=== PATIENT | female | born 1985 | race Caucasian/White ===

== ENCOUNTER 2023-05-02 05:47 | Emergency (ER) | payer MEDICAID, SELFPAY ==
[2023-05-02 05:49] VITALS: BP 142/87; PULSE 87; RESP 18; TEMP 36.4; O2SAT 99; BMI 28.0
--- NOTE | 2023-05-02 05:55 | RAD_ITS ---
EXAM: XR LEFT FOOT COMPLETE, 3 OR MORE VIEWS CLINICAL INDICATION: injury -- attn: toes 4-5 TECHNIQUE: Frontal, lateral and oblique views of the left foot. COMPARISON: No relevant prior studies available. FINDINGS: BONES/JOINTS: Linear lucency at the base of the distal phalanx of the fifth toe. No subluxation. Normal alignment. Preservation of the joint space. SOFT TISSUES: Soft tissue swelling of the fourth and fifth toes. No radiopaque foreign body. RAD/Foot min 3 Views IMPRESSION: Linear lucency at the base of the distal phalanx of the fifth toe. This may indicate a nondisplaced intra-articular fracture. Electronically Signed: Duane Pastrana MD at 6:35 EST ,
--- NOTE | 2023-05-02 05:56 | ED.VIS.LOWEX ---
HPI History of Present Illness Chief Complaint: Lower Extremity Injury Informant: patient Narrative Narrative: Patient got up this morning prior to work and was walking out of her basement better him to get some water to drink and accidentally injured her left fifth toe against a concrete lip as she was trying to walk over it. Able to walk but with pain. No other injuries. 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 PFSH PFSH Home Medications citalopram 20 mg tablet 30 mg PO DAILY 05/02/23 [History Last Taken Unknown] hydrocodone-acetaminophen 5-325mg 5mg-325mg 1 tab PO Q6H PRN PRN Pain 2 days #8 TABLETS 05/02/23 [Rx Last Taken Unknown] Allergy/AdvReac Type Severity Reaction Status Date / Time No Known Allergies Allergy Verified 05/02/23 05:48 Surgical History H/O: hysterectomy Social History Smoking Status: Former smoker ROS ROS ED Constitutional Constitutional ED: Denies chills or fever(s) Musculoskeletal Musculoskeletal: Reports extremity pain; Denies neck pain Integumentary Denies Abrasions, rash or wounds Neurologic Neurologic: Denies paresthesias or weakness EXAM Physical Exam Const Vital Signs: 05/02/23 05:49 Temperature 97.6 F L Temperature Source Temporal Pulse Rate 87 Respiratory Rate 18 Blood Pressure 142/87 H Blood Pressure Mean 105 Pulse Ox 99 Oxygen Delivery Method Room Air Positive well nourished and well developed General Appearance ED: well developed and NAD Neck full ROM and supple Back/Spine normal ROM and normal to inspection Extremity Extremity Narrative: Left foot: Swollen tender left fifth toe without deformity. Minimally tender at the fifth MTPJ, mildly tender fourth toe without signs of injury there. No tenderness at the base of the fifth metatarsal, and no other foot tenderness. Neuro oriented x3, no focal motor deficits and no sensory deficits noted Sensorium / Orientation: alert Psych thought process normal Mood & Affect: anxious Skin no wounds Rashes: no rashes MDM MDM MDM Narrative Medical decision making narrative: Three-view x-rays on my interpretation show what appears to be a longitudinal nondisplaced fracture of the distal phalanx of the left fifth toe. Otherwise, no other injuries. Patient was given a postop shoe, she wants only for pain and she is on citalopram, so instead of tramadol I will give her a few [place] to use for pain, with the doses of ibuprofen here and referral to podiatry as needed. Likely nonsurgical fracture, although it does appear to be intra-articular. Discharge Plan Triage Chief Complaint: Lower Extremity Injury ED Provider: Dax Crowder Dx/Rx/DC Orders Clinical Impression: Closed fracture of distal phalanx of lesser toe of left foot Instructions: ED Fracture, Toe, Closed Prescriptions: New hydrocodone-acetaminophen [hydrocodone-acetaminophen] 5-325 mg tablet 1 tab PO Q6H PRN PRN (Reason: Pain) 2 Days Qty: 8 0RF No Action citalopram 20 mg tablet 30 mg PO DAILY Patient Comments: TAKE 1 & 1/2 TABLETS BY MOUTH ONCE DAILY FOR A TOTAL OF 30 MG DAILY Stand Alone Forms: ED Work / School Excuse Primary Care Provider: Duane Reveles Referrals: Benjamin Morales DPM [Med Staff - Active Staff] - 1-2 Weeks Disposition Disposition: Home, Self Care
--- OUTSIDE RECORDS SUMMARY | 2023-05-02 06:38 | XMS RPT_ITS | CCD ---
Author Name Unknown Address [address] [place] [address] Organization [facility] Care Team Providers Care 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 Name Role Phone ShiDyane chang A Unavailable Unavailable Call, On Unavailable Unavailable Tizzano Wilver P Unavailable Unavailable No Doctor Assigned, Nodr Unavailable Unavail able Tithea Wilver P Unavailable Unavailable Tizzano, Wilver P Unavailable Unavailable No Doctor Assigned, Nodr Unavailable Unavail able Albina, Matteo A Unavailable Unavailable Albina, Matteo A Unavailable Unavailable No Doctor Assigned, Nodr Unavailable Unavail able Albina, Matteo A Unavailable Unavailable Albina, Matteo A Unavailable Unavailable No Doctor Assigned, Nodr Unavailable Unavail able Bosch, Vahe Unavailable Unavailable Bosch, Vahe Unavailable Unavailable No Doctor Assigned, Nodr Unavailable Unavail able Sokari, Telemate Unavailable Unavailable Sokari, Telemate Unavailable Unavailable No Doctor Assigned, Nodr Unavailable Unavail able Tithea Wilver P Unavailable Unavailable No Doctor Assigned, Nodr Unavailable Unavail able Ivanauskas, Saulius Unavailable Unavailable Ivanauskas, Saulius Unavailable Unavailable No Doctor Assigned, Nodr Unavailable Unavail able Arturo Burns Admitting UnavailArturo Peacock Attending UnavailArturo Peacock Admitting Unavailabl e Arturo Burns Attending Unavailabl e None, No PCP Unavailable Unavailable Unavailable Unavailable Yenny Reveles Unavailable Yenny Reveles PA-C Primary Care Provider YENNY REVELES Admitting Unavailable GLADYS MURRAY Attending Unavailable NEWYENNY SMITH Referring Unavailable NEWBILL, YENNY SÁNCHEZ Primary Care Unavailable VON MURRAYBERT JE Admitting Unavailable MALI MAURICIO Attending Unavailab le MURRAYVONBERT JE Referring Unavailable NEWBILL, YENNY SÁNCHEZ Primary Care Unavailable NEWBILL, YENNY SÁNCHEZ Primary Care Unavailable GLADYS MURRAY JE Attending Unavailable MURRAY, GUBERT JE Referring Unavailable NEWBILL, YENNY GONZALO Primary Care Unavailable MURRAYGLADYS JE Attending Unavailable MURRAY, GUBERT JE Referring Unavailable NEWBILL, YENNY PEREZEL Primary Care Unavailable MURRAYGLADYS JE Attending Unavailable MURRAY, GUBERT JE Referring Unavailable NEWBILMaikol, YENNY SÁNCHEZ Primary Care Unavailable OFELIA, Dr. ERICKSON LOMBARDO Attending Unavai lable Newbill, Mr. Yenny Sánchez Primary Care Unavail able Fried, Ms. Berylwilson Lawrence Attending Unavailabl e Fried, MsCarmen Lawrence Referring Unavailabl e Joselynl, Mr. Yenny Sánchez Primary Care Unavail able Newbill, Mr. Yenny Sánchez Primary Care Unavail able Newbill, Mr. Yenny Sánchez Attending Unavail able Newbill, Mr. Yenny Sánchez Referring Unavail able ERICKSON PENA Attending Unavailable Newbill, Mr. Yenny Sánchez Primary Care Unavail able ERICKSON PENA Attending Unavailable ERICKSON PENA Referring Unavailable Newbill, Mr. Yenny Sánchez Primary Care Unavail able ERICKSON PENA Attending Unavailable ERICKSON PENA Referring Unavailable Newbill, Mr. Yenny Sánchez Primary Care Unavail able Newbill, Mr. Yenny Sánchez Primary Care Unavail able ERICKSON PENA Attending Unavailable ERICKSON PENA Referring Unavailable Newbill MANUELCEbern Kaykay Primary Care Provider Newbill PA-C, Yenny M Unavailable Newbill PA-C, Yenny M Unavailable SHAWN SANTOS Attending Unavailable SHAWN SANTOS Referring Unavailable NEWBILL, YENNY M Primary Care Unavailable SHAWN SANTOS Referring Unavailable NEWBILL, YENNY M Primary Care Unavailable SHAWN SANTOS Referring Unavailable NEWBILL, YENNY M Primary Care Unavailable NEWBILL, YENNY M Attending Unavailable NEWBILL, YENNY M Primary Care Unavailable ERICKSON PENA Attending Unavailable YENNY REVELES Primary Care Unavailable ERICKSON PENA Attending Unavailable EYNNY REVELES Primary Care Unavailable Medications Current Medications Medication Drug Class(es) Dates Sig (Normalized) Sig (Original) [id number] 200 actuat albuterol 0.09 mg/actuat metered dose inhaler (4 sources) beta2-Adrenergi c Agonist Start: 03-10-2019 take 2 puff(s) by inhalation four times daily albuterol (ProAir HFA) 90 mcg/actuation inhaler Inhale 2 puffs 4 times a day. 0 03/10/2019 Active cholecalciferol 0.025 mg oral tablet (10 sources) Vitamin D Start: 05-25-2021 take 1 tablet by mouth once daily cholecalciferol 25 mcg (1,000 unit) tablet TAKE 1 TABLET BY MOUTH EVERY DAY 30 tablet 11 05/25/2021 Active Completed/Discontinued Medications Medication Drug Class(es) Dates Sig (Normalized) Sig (Original) fluconazole 150 mg oral tablet (7 sources) Azole Antifungal Start: 12-15-2021 End: 01-25-2022 take 1 tablet by mouth once Fluconazole 150 MG Oral Tablet TAKE 1 TABLET 1 TIME ONLY. Quantity: 1 Refills: 1 Ordered: 15-Dec-2021 Erickson Pena MD Start : 15-Dec-2021 End : 25-Jan-2022 Complete Problems Active Problems Problem Classification Problem Date Documented Da te Episodic/Chronic Anxiety disorders (20 sources) Mixed anxiety and depressive disorder; Translations: [Anxiety state, unspecified] Onset: 11-24-2022 11-24-2022 Chronic Cancer of uterus (15 sources) History of malignant neoplasm of uterine body; Translations: [Personal history of malignant neoplasm of other parts of uterus] Episodic Epilepsy; convulsions (18 sources) Neurological finding; Translations: [Other convulsions] Onset: 11-24-2022 Resolved: 01-25-2022 11-24-2022 Episodic Headache; including migraine (20 sources) Migraine with aura; Translations: [Migraine with aura, without mention of intractable migraine without mention of status migrainosus] Onset: 11-24-2022 11-24-2022 Chronic Immunizations and screening for infectious disease (20 sources) Patient encounter status; Translations: [Screening examination for venereal disease] Onset: 03-08-2023 Resolved: 04-25-2021 03-08-2023 Episodic Inflammatory diseases of female pelvic organs (20 sources) Bacterial vaginosis; Translations: [Vaginitis and vulvovaginitis, unspecified] Onset: 11-24-2022 Resolved: 01-25-2022 11-24-2022 Episodic Mood disorders (2 sources) Mood disorders; Translations: [Depression, unspecified] Onset: 11-24-2022 Other and unspecified benign neoplasm (2 sources) Fibroadenoma of breast; Translations: [Benign neoplasm of breast] Episodic Other female genital disorders (4 sources) Pruritus of vagina; Translations: [Pruritus of genital organs] Episodic Other screening for suspected conditions (not mental disorders or infectious disease) (11 sources) Encounter for screening for malignant neoplasm of vagina; Translations: [Ultrasonography of breast abnormal] Onset: 01-26-2022 Episodic Residual codes; unclassified (15 sources) History of past delivery; Translations: [Personal history of other genital system and obstetric disorders] Episodic Past or Other Problems Problem Classification Problem Date Documented Date Episodic/Chronic Genitourinary symptoms and ill-defined conditions (15 sources) Dysuria; Translations: [Dysuria] Onset: 11-24-2022 11-24-2022 Episodic Mycoses (15 sources) Candidiasis of vagina; Translations: [Candidiasis of vulva and vagina] Onset: 11-24-2022 Resolved: 01-25-2022 11-24-2022 Episodic Nonmalignant breast conditions (20 sources) Breast tenderness; Translations: [Mastodynia] Onset: 01-29-2022 Resolved: 04-25-2021 Episodic Other and unspecified benign neoplasm (4 sources) Fibroadenoma of left breast; Translations: [Benign neoplasm of left breast] Onset: 11-24-2022 11-24-2022 Episodic Other connective tissue disease (1 source) Pain in right foot; Translations: [PAIN IN RIGHT FOOT] Onset: 08-12-2016 Episodic Other female genital disorders (11 sources) History of gynecological disorder; Translations: [Personal history of other genital system and obstetric disorders] Resolved: 04-25-2021 Episodic Other infections; including parasitic (11 sources) H/O: infectious disease; Translations: [Personal history of other infectious and parasitic diseases] Resolved: 04-25-2021 Episodic Other non-traumatic joint disorders (1 source) Pain in right ankle and joints of right foot; Translations: [PAIN IN RIGHT ANKLE AND JOINTS OF RIGHT FOOT] Onset: 08-12-2016 Episodic Residual codes; unclassified (4 sources) H/O: urinary anomaly; Translations: [Personal history of unspecified urinary disorder] Resolved: 04-25-2021 Episodic Unclassified (2 sources) Onset: 01-31-2023 01-31-2023 Results Test Name Value Interpretation Reference Range Facil ity Vital Signs Date Time Vital Sign Value Performing Clinician Facility 03-08-2023 08:49-0500 Body height 142.2 cm Erickson Pena MD Work Phone: [facility] 03-08-2023 08:49-0500 Body mass index (BMI) [Ratio] 26.99 kg/m2 Erickson Pena MD Work Phone: [facility] 03-08-2023 08:49-0500 Body weight 54.61 kg Erickson Pena MD Work Phone: [facility] 03-08-2023 08:49-0500 Diastolic blood pressure 68 mm[Hg] Erickson Pena MD Work Phone: [facility] 03-08-2023 08:49-0500 Systolic blood pressure 116 mm[Hg] Erickson Pena MD Work Phone: [facility] 01-31-2023 11:51-0500 Body height 142.2 cm Yenny Fernandezbill PA-C Work Phone: [facility] 01-31-2023 11:51-0500 Body mass index (BMI) [Ratio] 27.06 kg/m2 Yenny Newbill PA-C Work Phone: [facility] 01-31-2023 11:51-0500 Body temperature 97.7 [degF] Yenny Newbill PA-C Work Phone: [facility] 01-31-2023 11:51-0500 Body weight 54.75 kg Yenny Newbill PA-C Work Phone: [facility] 01-31-2023 11:51-0500 Diastolic blood pressure 87 mm[Hg] Yenny Newbill PA-C Work Phone: [facility] 01-31-2023 11:51-0500 Heart rate 65 /min Yenny Newbill PA-C Work Phone: [facility] 01-31-2023 11:51-0500 Systolic blood pressure 131 mm[Hg] Yenny Newbill PA-C Work Phone: [facility] 11-30-2022 12:27-0400 Body height 142.2 cm Shawn Tom [employer] COUNTER ASSOCIATE-[employer]RECKING MECHANIC Work Phone: [facility] 11-30-2022 12:27-0400 Body mass index (BMI) [Ratio] 26.9 kg/m2 Shawn Tom [employer] COUNTER ASSOCIATE-WRECKING MECHANIC Work Phone: [facility] 11-30-2022 12:27-0400 Body weight 54.43 kg Shawn Tom [employer] COUNTER ASSOCIATE-WRECKING MECHANIC Work Phone: [facility] 11-30-2022 12:27-0400 Diastolic blood pressure 50 mm[Hg] Shawn Tom [employer] COUNTER ASSOCIATE-WRECKING MECHANIC Work Phone: [facility] 11-30-2022 12:27-0400 Heart rate 76 /min Shawn Tom AUT[employer] COUNTER ASSOCIATE-WRECKING MECHANIC Work Phone: [facility] 11-30-2022 12:27-0400 Respiratory rate 16 /min Shawn Tom [employer] COUNTER ASSOCIATE-WRECKING MECHANIC Work Phone: [facility] 11-30-2022 12:27-0400 Systolic blood pressure 100 mm[Hg] Shawn Tom [employer] COUNTER ASSOCIATE-WRECKING MECHANIC Work Phone: [facility] 11-30-2022 10:57-0400 Body height 142.2 cm Stj [address] [facility] 11-30-2022 10:57-0400 Body mass index (BMI) [Ratio] 27.13 kg/m2 [facility] [address] [facility] 11-30-2022 10:57-0400 Body weight 54.88 kg [facility] [address] [facility] 11-07-2022 10:34-0400 Body height 142.24 cm Yenny Kaykay Newbill Work Phone: [facility] [address] Work Phone: 11-07-2022 10:34-0400 Body mass index (BMI) [Ratio] 27.35 kg/m2 Yenny M Newbill Work Phone: [facility] [address] Work Phone: 11-07-2022 10:34-0400 Body surface area Derived from formula 1.44 m2 Yenny M Newbill Work Phone: [facility] [address] Work Phone: 11-07-2022 10:34-0400 Body weight 55.34 kg Yenny M Newbill Work Phone: [facility] [address] Work Phone: 11-07-2022 10:34-0400 Diastolic blood pressure 74 mm[Hg] Yenny M Newbill Work Phone: [facility] [address] Work Phone: 11-07-2022 10:34-0400 Systolic blood pressure 122 mm[Hg] Yenny M Newbill Work Phone: [facility] [address] Work Phone: 02-02-2022 15:42-0500 Body height 142.24 cm Yenny M Newbill Work Phone: [facility] [address] Work Phone: 02-02-2022 15:42-0500 Body mass index (BMI) [Ratio] 27.13 kg/m2 Yenny M Newbill Work Phone: [facility] [address] Work Phone: 02-02-2022 15:42-0500 Body surface area Derived from formula 1.43 m2 Yenny M Newbill Work Phone: [place] [address] [address] Work Phone: 02-02-2022 15:42-0500 Body weight 54.9 kg Yenny M Newbill Work Phone: [place] [address] [address] Work Phone: 02-02-2022 15:42-0500 Diastolic blood pressure 72 mm[Hg] Yenny M Newbill Work Phone: [place] [address] [address] Work Phone: 02-02-2022 15:42-0500 Systolic blood pressure 118 mm[Hg] Yenny M Newbill Work Phone: [place] [address] [address] Work Phone: 01-26-2022 13:13-0500 Body height 142.24 cm Yenny M Newbill Work Phone: [place] [address] [address] Work Phone: 01-26-2022 13:13-0500 Body mass index (BMI) [Ratio] 26.25 kg/m2 Yenny M Newbill Work Phone: [place] [address] Work Phone: 01-26-2022 13:13-0500 Body surface area Derived from formula 1.41 m2 Yenny M Newbill Work Phone: [place] [address] [address] Work Phone: 01-26-2022 13:13-0500 Body weight 53.1 kg Yenny M Newbill Work Phone: [place] [address] [address] Work Phone: 01-26-2022 13:13-0500 Diastolic blood pressure 66 mm[Hg] Yenny M Newbill Work Phone: [address] Work Phone: 01-26-2022 13:13-0500 Systolic blood pressure 112 mm[Hg] Yenny Reveles Work Phone: [address] Work Phone: 01-25-2022 16:04-0500 Body height 142.24 cm Yenny Reveles Work Phone: [facility] Work Phone: 01-25-2022 16:04-0500 Body mass index (BMI) [Ratio] 26.46 kg/m2 Yenny Reveles Work Phone: [facility] Work Phone: 01-25-2022 16:04-0500 Body surface area Derived from formula 1.42 m2 Yenny Reveles Work Phone: [facility] Work Phone: 01-25-2022 16:04-0500 Body temperature 97.8 [degF] Yenny Reveles Work Phone: [facility] Work Phone: 01-25-2022 16:04-0500 Body weight 53.52 kg Yenny Reveles Work Phone: [facility] Work Phone: 01-25-2022 16:04-0500 Diastolic blood pressure 68 mm[Hg] Yenny Reveles Work Phone: [facility] Work Phone: 01-25-2022 16:04-0500 Heart rate 88 /min Yenny Reveles Work Phone: [facility] Work Phone: 01-25-2022 16:04-0500 SaO2% (BldA) [Mass fraction] 98 % Yenny M Newleahl Work Phone: [facility] Work Phone: 01-25-2022 16:04-0500 Systolic blood pressure 110 mm[Hg] Yenny Kaykay Newbill Work Phone: [facility] Work Phone: 11-30-2021 13:50-0400 Body height 142.24 cm Yenny Kaykay Newbill Work Phone: [place] [address] [address] Work Phone: 11-30-2021 13:50-0400 Body mass index (BMI) [Ratio] 26.25 kg/m2 Yenny Kakyay Newbill Work Phone: [address] Work Phone: 11-30-2021 13:50-0400 Body surface area Derived from formula 1.41 m2 Yenny Alvesl Work Phone: [place] [address] [address] Work Phone: 11-30-2021 13:50-0400 Body weight 53.1 kg Yenny Reveles Work Phone: [address] Work Phone: 11-30-2021 13:50-0400 Diastolic blood pressure 74 mm[Hg] Yenny Kaykay Newbill Work Phone: [place] [address] [address] Work Phone: 11-30-2021 13:50-0400 Systolic blood pressure 108 mm[Hg] Yenny Kaykay Newbill Work Phone: [place] [address] [address] Work Phone: 04-25-2021 11:33-0500 Body height 142.24 cm [facility] Work Phone: [facility] Work Phone: 04-25-2021 11:33-0500 Body mass index (BMI) [Ratio] 26.63 kg/m2 Yenny Alvesl Work Phone: [facility] Work Phone: 04-25-2021 11:33-0500 Body surface area Derived from formula 1.42 m2 Yenny Alvesl Work Phone: [facility] Work Phone: 04-25-2021 11:33-0500 Body temperature 98.2 [degF] Yenny Alvesl Work Phone: [facility] Work Phone: 04-25-2021 11:33-0500 Body weight 53.89 kg Yenny Alvesl Work Phone: [facility] Work Phone: 04-25-2021 11:33-0500 Diastolic blood pressure 81 mm[Hg] Yenny Reveles Work Phone: [facility] Work Phone: 04-25-2021 11:33-0500 Heart rate 86 /min Yenny Reveles Work Phone: [facility] Work Phone: 04-25-2021 11:33-0500 SaO2% (BldA) [Mass fraction] 99 % Yenny Reveles Work Phone: [facility] Work Phone: 04-25-2021 11:33-0500 Systolic blood pressure 124 mm[Hg] Yenny Kaykay Alvesl Work Phone: [facility] Work Phone: 01-02-2021 11:02-0500 Body height 142.24 cm Yenny Alvesl Work Phone: [facility] Work Phone: 01-02-2021 11:02-0500 Body mass index (BMI) [Ratio] 24.89 kg/m2 Yenny Reveles Work Phone: [facility] Work Phone: 01-02-2021 11:02-0500 Body surface area Derived from formula 1.38 m2 Yenny Alves Work Phone: [facility] Work Phone: 01-02-2021 11:02-0500 Body temperature 98.4 [degF] Yenny Reveles Work Phone: [facility] Work Phone: 01-02-2021 11:02-0500 Body weight 50.35 kg Yenny Reveles Work Phone: [facility] Work Phone: 01-02-2021 11:02-0500 Diastolic blood pressure 80 mm[Hg] Yenny Reveles Work Phone: [facility] Work Phone: 01-02-2021 11:02-0500 Heart rate 82 /min Yenny Reveles Work Phone: [facility] Work Phone: 01-02-2021 11:02-0500 SaO2% (BldA) [Mass fraction] 98 % Yenny Reveles Work Phone: [facility] Work Phone: 01-02-2021 11:02-0500 Systolic blood pressure 119 mm[Hg] Yenny Alvesl Work Phone: [facility] Work Phone: 12-23-2020 10:52-0400 Body height 142.24 cm No [facility]CP [facility] [address] Work Phone: 12-23-2020 10:52-0400 Body mass index (BMI) [Ratio] 24.86 kg/m2 No [facility] [address] [place] [address] Work Phone: 12-23-2020 10:52-0400 Body surface area Derived from formula 1.38 m2 No PCP None [address] Work Phone: 12-23-2020 10:52-0400 Body temperature 98 [degF] No [facility]CP [facility] [address] [place], [place] [address] Work Phone: 12-23-2020 10:52-0400 Body weight 50.3 kg No PCP None [facility] [address] [place] [address] Work Phone: 12-23-2020 10:52-0400 Diastolic blood pressure 70 mm[Hg] No PCP None [address] Work Phone: 12-23-2020 10:52-0400 Systolic blood pressure 114 mm[Hg] No PCP None [address] Work Phone: Encounters Encounter Date Encounter Type Care Provider Facility Start: 03-08-2023 End: 03-08-2023 ambulatory [facility] Start: 03-08-2023 End: 03-08-2023 Office outpatient visit 15 minutes Erickson Pena MD Work Phone: [facility] Procedures Date Procedure Procedure Detail Performing Clinician Start: 03-08-2023 Smr prim src wet santosh nt nfct agt Erickson Pena MD Work Phone: Start: 11-30-2022 BI US BREAST LIMITED LEFT SHAWN SANTOS Start: 11-30-2022 BI MAMMO BILATERAL DIAGNOSTIC TOMOSYNTHESIS SHAWN SANTOS Start: 11-30-2022 Diagnostic mammograp hy computer-aided detcj bi Shawn Santos APRN-WRECKING MECHANIC Work Phone: Start: 01-26-2022 Microscopic observat ion [Identifier] in Cervix by Cyto stain Shawn Santos APRN-WRECKING MECHANIC Work Phone: Start: 05-16-2021 End: 05-16-2021 Ecg routine ecg w/least 12 lds w/i&r Gladys Murray MD Work Phone: Dilation and curettage No PC P None Hysterectomy No PCP None Plan of Treatment Date Care Activity Detail Author Start: 06-12-2035 Zoster Vaccines (1 o f 2) Zoster Vaccines (1 of 2) [facility] Start: 01-26-2025 Screening for malignant neoplasm of cervix [facility] Start: 02-08-2024 Yearly Adult Physical Yearly Adult P hysical [facility] Start: 02-03-2024 End: 02-03-2024 Patient encounter procedure 02/03/2024 1:10 PM EST Office Visit [facility] [address] [place] [id number] Yenny Reveles PA-C [address] [facility] [place] [address] [facility] Start: 12-06-2023 End: 12-06-2023 Patient encounter procedure [facility] Start: 03-08-2023 End: 03-15-2023 Bacteria identified in Genital specimen by Aerobe culture Genital Culture Microbiology Routine Screen for STD (sexually transmitted disease) Expected: 03/08/2023 (Approximate), Expires: 03/15/[address] [facility] Work Phone: Payers Date Payer Category Payer Medicaid [employer] [id number] 2017-Present [phone] [address] [place] [address] [id number] 2017 Unknown [id number] 2017 Unknown [id number] 2017 Unknown 1985 Unknown [id number] 2.16.840.1.096722.3.579.2. 1985 Unknown [id number] 2.16.840.1.061717.3.579.2 1985 Unknown [id number] 2.16.840.1.058178.3.579.2 1985 Unknown [id number] 2.16.840.1.384018.3.579.2 1985 Unknown [id number] 2.16.840.1.805159.3.579.2 1985 Unknown [id number] 2..840.1.516138.3.579.2 1985 Unknown [id number] 2.16.840.1.033783.3.579.2 1985 Unknown [id number] 2.840.1.427565.3.579.2 1985 Unknown [id number] 2.16840.1.195491.3.579.2 1985 Unknown [id number] 2.840.1.628362.3.579.2 1985 Unknown [id number] 2.16.840.1.450863.3.579.2 1985 Unknown [id number] 2.16840.1.130616.3.579.2 1985 Unknown [id number] 2.16840.1.158624.3.579.2 1985 Unknown [id number] 2.16840.1.715874.3.579.2 1985 Unknown [id number] 2.16.840.1.215289.3.579.2.1068 1985 Unknown [id number] 2.16840.1.792026.3.579.2.356 1985 Unknown [id number] 2.16.840.1.639308.3.579.2.356 1985 Unknown [id number] 2.16.840.1.244665.3.579.2.356 1985 Unknown [id number] 2.16.840.1.634954.3.579.2.356 1985 Unknown [id number] 2.16.840.1.008196.3.579.2.356 1985 Unknown [id number] 2.16.840.1.840672.3.579.2.356 1985 Unknown [id number] 2.16.840.1.584429.3.579.2.1245 1985 Unknown [id number] 2.16.840.1.479647.3.579.2.1243 1985 Unknown [id number] 2.16.840.1.491057.3.579.2.1243 1985 Unknown [id number] 2.16.840.1.451463.3.579.2.1244 1985 Unknown [id number] 2.16.840.1.942914.3.579.2.1244 1985 Unknown [id number] 2.16.840.1.478951.3.579.2.1244 Unknown [id number] Social History Date Type Detail Facility Start: 01-31-2023 End: 02-06-2023 Occasional alcohol use Occasional alcohol use [facility] Work Phone: Start: 05-01-2021 [facility] Start: 05-01-2021 End: 01-31-2023 Tobacco use and exposure Smokeless tobacco non-user [facility] Start: 05-01-2021 Alcohol intake Ex-drinker (finding) [facility] Start: 1985 Sex Assigned At Not on file [facility] Start: 04-21-2021 End: 03-08-2023 Exposure to SARS-CoV-2 (event) Not sure [facility] Start: 11-30-2022 Tobacco smoking stat [facility] Tobacco smoking consumption unknown [facility] Start: 01-31-2023 End: 02-06-2023 Gender identity Not on file [facility] Work Phone: Start: 01-31-2023 [facility] Start: 01-31-2023 End: 03-08-2023 Alcohol intake Current drinker of alcohol (finding) [facility] Work Phone: Clinical Notes 12-21-2020 to 03-08-2023 Erickson Pena MD - 03/08/2023 8:45 AM Justin Reveles PA-C - 01/31/2023 11:50 AM Yazan Santos APRN-YUNG - 11/30/2022 1:00 PM Liliane Rosales MD - 05/16/2021 10:14 AM EDT Note Date & Type Note Facility 03-08-2023 History of Present illness Narrative César Kendall is a 37 y.o. year old female patient. PCP = Yenny Reveles PA-C Chief Complaint Patient presents with Vaginitis/Bacterial Vaginosis Patient is here with c/o vaginal discharge, itching, burning and tenderness. Patient would like STD screening as well. HPI Presents stating that she has noticed a vaginal discharge with itching and burning for the last 4 days. She also wishes to be screened for STDs as her was unfaithful. Patient had previous hysterectomy. Denies any recent antibiotic use. OB History 1 Para 1 Term 1 0 AB 0 Living 1 SAB 0 IAB 0 Ectopic 0 Multiple 0 Live Births 1 Past Medical History: Diagnosis Date Acute vaginitis 11/30/2021 Bacterial vaginosis Candidiasis, unspecified 12/15/2021 Yeast infection Encounter for gynecological examination (general) (routine) without abnormal findings 01/26/2022 Pap test, as part of routine gynecological examination Encounter for screening for infections with a predominantly sexual mode of transmission 12/23/2020 Screen for STD (sexually transmitted disease) Mastodynia 01/12/2020 Breast tenderness in female Other conditions influencing health status Menarche Other conditions influencing health status History of vaginal delivery Personal history of malignant neoplasm of other parts of uterus History of malignant neoplasm of uterus Personal history of other diseases of the female genital tract 03/30/2019 History of vaginal pruritus Personal history of other infectious and parasitic diseases 12/27/2020 History of candidiasis of vagina Personal history of other mental and behavioral disorders History of anxiety Tobacco abuse counseling 12/23/2020 Encounter for smoking cessation counseling Unspecified convulsions ([facility]) 04/25/2021 Seizure-like activity Past Surgical History: Procedure Laterality Date DILATION AND CURETTAGE OF UTERUS HYSTERECTOMY LAPAROSCOPY DIAGNOSTIC / BIOPSY / ASPIRATION / LYSIS Left Left salpingoopherectomy Review of Systems: Constitutional: No fever or chills Respiratory: No shortness of breath, or cough Cardiovascular: No chest pain or syncope Breasts: No breast pain, no masses, no nipple discharge Gastrointestinal: No nausea, vomiting, or diarrhea, no abdominal pain Genitourinary: No dysuria or frequency Gynecology: Negative except as noted in history of present illness All other: All other systems reviewed and negative for complaint Medication Documentation Review Audit Reviewed by Erickson Pena MD (Physician) on 02/06/23 at 1546 Medication Order Taking? Sig Documenting Provider Last Dose Status albuterol (ProAir HFA) 90 mcg/actuation inhaler [id number] No Inhale 2 puffs 4 times a day. Historical ProviderMD Not Taking Active cholecalciferol (Vitamin D3) 25 MCG (1000 UT) tablet [id number] No Historical Provider, Taking Active citalopram (CeleXA) 20 mg tablet [id number] No TAKE 1 & 1/2 TABLETS BY MOUTH ONCE DAILY FOR A TOTAL OF 30 MG DAILY Yenny Reveles PA-C Taking Active Discontinued 01/31/23 1202 cyclobenzaprine (Flexeril) 10 mg tablet [id number] Take 1 tablet (10 mg) by mouth 3 times a day as needed for muscle spasms (tension MURDOCK). Yenny Reveles PA-C Active diazePAM (Valium) 10 mg tablet [id number] No Historical Provider, Not Taking Active prochlorperazine (Compazine) 10 mg tablet [id number] No Take 1 tablet (10 mg) by mouth every 6 hours if needed (for nausea or at onset of migraine). Historical Provider, Taking Active rizatriptan (Maxalt) 10 mg tablet [id number] No Take 1 tablet (10 mg) by mouth 1 time if needed (AT ONSET OF HEADACHE. MAY REPEAT EVERY 2 HOURS NEEDED. MAXIMUM 3 TABLETS IN 24 HOURS.). Yenny Reveles PA-C Taking Active topiramate (Topamax) 25 mg tablet [id number] Take one daily for one week and then increase to 1 twice daily there after Yenny Reveles PA-C Active BP 116/68 Ht 1.422 m (4' 8 ) Wt 54.6 kg (120 lb 6.4 oz) BMI 26.99 kg/m PHYSICAL EXAMINATION: PHYSICAL EXAMINATION: Well-developed, well nourished, in no acute distress, alert and oriented x three, is pleasant and cooperative. HEENT: Clear. Pupils equal, round and reactive to light and accommodation. Extraocular muscles are intact. Oral mucosa pink without exudate. NECK: No lymphadenopathy, no thyromegaly. LUNGS: Clear bilaterally. HEART: Regular rate and rhythm without murmurs. ABDOMEN: Normoactive bowel sounds, soft and nontender, no guarding or rebound tenderness, no CVA tenderness. EXTREMITIES: No clubbing, cyanosis or edema. NEUROLOGIC: Cranial nerves II-XII grossly intact. : Normal external female genitalia. Normal vulva and vagina. Normal urethral meatus, urethra and bladder. Noted surgical absence of the cervix and uterus. Well-healed vaginal cuff. Wet prep is positive for bacterial vaginosis, negative for trichomonas or yeast. General genital vaginal culture obtained. Orders Placed This Encounter Procedures Genital Culture Standing Status: Future Standing Expiration Date: 03/15/2023 Order Specific Question: Release result to [employer] Answer: Immediate [1] C. Trachomatis / N. Gonorrhoeae, Amplified Detection Standing Status: Future Number of Occurrences: 1 Standing Expiration Date: 03/08/2024 Order Specific Question: Release result to [employer] Answer: Immediate Syphilis Screen with Reflex Standing Status: Future Standing Expiration Date: 03/08/2024 Order Specific Question: Release result to MyChart Answer: Immediate [1] HIV 1/2 Antigen/Antibody Screen with Reflex to Confirmation Standing Status: Future Standing Expiration Date: 03/08/2024 Order Specific Question: Release result to MyChart Answer: Immediate [1] POCT Wet Mount manually resulted Order Specific Question: Release result to MyChart Answer: Immediate [1] Problem List Items Addressed This Visit None Visit Diagnoses BV (bacterial vaginosis) - Primary Relevant Medications metroNIDAZOLE (Metrogel) 0.75 % (37.5mg/5 gram) vaginal gel Other Relevant Orders POCT Wet Mount manually resulted Screen for STD (sexually transmitted disease) Relevant Orders C. Trachomatis / N. Gonorrhoeae, Amplified Detection Syphilis Screen with Reflex HIV 1/2 Antigen/Antibody Screen with Reflex to Confirmation Genital Culture Provider Impression: 1. Bacterial vaginosis 2. Screen for STD Prescription for MetroGel vaginal for the bacterial vaginosis. Will obtain GC, chlamydia, HIV and syphilis testing. Patient will be called with results. Follow-up in the office as previously scheduled. documented in this encounter [facility] Work Phone: 01-31-2023 History of Present illness Narrative Subjective Patient ID: César Kendall is a 37 y.o. female who presents for Annual Exam (FU 1 year, patient states has notice lymph nodes swollen in the neck area x 2 weeks./Patient states has been having increased migraines and medications are working to alleviate symptoms.). HPI Patient presents in annual follow-up. Patient reports recent increase in frequency and intensity of migraines. The Maxalt and Compazine are still working reflexively. Patient however is wondering if there are any other options for maintenance. Patient has no other complaints. Review of Systems Constitutional: See HPI Neurologic: Alert and oriented X4, No numbness, No tingling. All other systems are negative Objective BP 131/87 Pulse 65 Temp 36.5 C (97.7 F) (Temporal) Ht 1.422 m (4' 8 ) Wt 54.7 kg (120 lb 11.2 oz) BMI 27.06 kg/m Physical Exam General: Alert and oriented, No acute distress. Eye: Pupils are equal, round and reactive to light, Extraocular movements are intact, Normal conjunctiva. HENT: Normocephalic, Normal hearing, Oral mucosa is moist, No pharyngeal erythema, No sinus tenderness. Neck: Supple, Non-tender, No lymphadenopathy. Respiratory: Lungs are clear to auscultation, Respirations are non-labored, Breath sounds are equal Cardiovascular: Normal rate, Regular rhythm. Gastrointestinal: Non-distended. Musculoskeletal: Normal range of motion, Normal strength, No tenderness, No swelling, No deformity, Normal gait. Integumentary: Warm, Dry, Intact, No pallor, No rash. Neurologic: Alert, Oriented, Normal sensory, Normal motor function, No focal deficits, Cranial Nerves II-XII are grossly intact Psychiatric: Cooperative, Appropriate mood & affect. Assessment/Plan Anxiety and depression: Continue Celexa Tension headaches: Continue Flexeril Migraines: Start Topamax. Use of this medication reviewed. Continue Maxalt and Compazine as needed Follow-up in 1 year or as needed Problem List Items Addressed This Visit Anxiety and depression Migraine with aura and without status migrainosus, not intractable Relevant Medications topiramate (Topamax) 25 mg tablet Seizure-like activity (CMS/HCC) - Primary Relevant Medications topiramate (Topamax) 25 mg tablet Tension headache, chronic Relevant Medications cyclobenzaprine (Flexeril) 10 mg tablet Final diagnoses: [R56.9] Seizure-like activity (CMS/HCC) [G43.109] Migraine with aura and without status migrainosus, not intractable [F41.9, F32.A] Anxiety and depression [G44.229] Chronic tension-type headache, not intractable documented in this encounter [facility] Work Phone: 11-30-2022 Note No change in the pro bably benign mass in the left breast. This has been stable for nearly a year. An ultrasound evaluation in 1 year at the time of the patient's bilateral mammogram is recommended to document near 2 year stability. Clinical follow-up is recommended for the breast pain. No new mammographic evidence of malignancy bilaterally. BI-RADS CATEGORY: BI-RADS Category: 3 Probably Benign. Recommendation: Short Interval Follow-up. Recommended Date: 1 Year. Laterality: Bilateral For any future breast imaging appointments, please call [phone]). MACRO: None Signed by: Thor Royal 11/30/2022 1:41 PM Dictation workstation: [id number] [facility] 11-30-2022 History of Present illness Narrative César Kendall female 1985 37 y.o. [id number] Chief Complaint New patient, breast pain. History Of Present Illness César Kendall is a pleasant 37 y.o. female presenting to the breast center with left breast pain. She first noticed the pain a month ago. She describes the pain as sharp or dull and states it is constant. She denies trauma to the breast. She denies nipple discharge, fever or chills. She denies caffeine, fatty food and does not smoke. She denies breast surgery or biopsy. She has no family history of breast cancer. REPRODUCTIVE HISTORY: menarche age 9, , first age 20, breastfed x 6 months, OCP's x 3 years, premenopausal, s/p partial hysterectomy with left ovary intact, hx cervical cancer, extremely dense FAMILY CANCER HISTORY: Mother: Cervical cancer, age 27 Review of Systems Constitutional: Negative for appetite change, fatigue, fever and unexpected weight change. HENT: Negative for ear pain, hearing loss, nosebleeds, sore throat and trouble swallowing. Eyes: Negative for discharge, itching and visual disturbance. Breast: As stated in HPI. Respiratory: Negative for cough, chest tightness and shortness of breath. Cardiovascular: Negative for chest pain, palpitations and leg swelling. Gastrointestinal: Negative for abdominal pain, constipation, diarrhea and nausea. Endocrine: Negative for cold intolerance and heat intolerance. Genitourinary: Negative for dysuria, frequency, hematuria, pelvic pain and vaginal bleeding. Musculoskeletal: Negative for arthralgias, back pain, gait problem, joint swelling and myalgias. Skin: Negative for color change and rash. Allergic/Immunologic: Negative for environmental allergies and food allergies. Neurological: Negative for dizziness, tremors, speech difficulty, weakness, numbness and headaches. Hematological: Does not bruise/bleed easily. Psychiatric/Behavioral: Negative for agitation, dysphoric mood and sleep disturbance. The patient is not nervous/anxious. Surgical History She has a past surgical history that includes Other surgical history (03/29/2019); Other surgical history (03/30/2019); and Other surgical history (12/25/2019). Social History Social History Tobacco Use Smoking status: Unknown Smokeless tobacco: Not on file Substance Use Topics Alcohol use: Not on file Family History Cancer-related family history includes Ovarian cancer in her mother; Pancreatic cancer in an other family member. Allergies Patient has no known allergies. Medications Current Outpatient Medications Medication Instructions albuterol (ProAir HFA) 90 mcg/actuation inhaler 2 puffs, inhalation, 4 times daily cholecalciferol (Vitamin D3) 25 MCG (1000 UT) tablet No dose, route, or frequency recorded. citalopram (CeleXA) 20 mg tablet TAKE 1 & 1/2 TABLETS BY MOUTH ONCE DAILY FOR A TOTAL OF 30 MG DAILY cyclobenzaprine (FLEXERIL) 10 mg, oral, 3 times daily PRN diazePAM (Valium) 10 mg tablet No dose, route, or frequency recorded. prochlorperazine (COMPAZINE) 10 mg, oral, Every 6 hours PRN rizatriptan (MAXALT) 10 mg, oral, Once as needed Past Medical History She has a past medical history of Acute vaginitis (11/30/2021), Candidiasis, unspecified (12/15/2021), Encounter for gynecological examination (general) (routine) without abnormal findings (01/26/2022), Encounter for screening for infections with a predominantly sexual mode of transmission (12/23/2020), Mastodynia (01/12/2020), Other conditions influencing health status, Other conditions influencing health status, Personal history of malignant neoplasm of other parts of uterus, Personal history of other diseases of the female genital tract (03/30/2019), Personal history of other infectious and parasitic diseases (12/27/2020), Personal history of other mental and behavioral disorders, Tobacco abuse counseling (12/23/2020), and Unspecified convulsions (CMS/HCC) (04/25/2021). Physical Exam Physical Exam Chest: Patient is alert and oriented x3 and in a relaxed and appropriate mood. Her gait is steady and hand grasps are equal. Sclera is clear. The breasts are nearly symmetrical. Left breast 7:00, 4 cm from the nipple, 1.0 x 1.0 cm mass, soft, round, and mobile. The right breast tissue is soft without palpable abnormalities, discrete nodules or masses. The skin and nipples appear normal. There is no cervical, supraclavicular or axillary lymphadenopathy. Heart rate and rhythm normal, S1 and S2 appreciated. The lungs are clear to auscultation bilaterally. Abdomen is soft and non-tender. Last Recorded Vitals Blood pressure 100/50, pulse 76, resp. rate 16, height 1.422 m (4' 8 ), weight 54.4 kg (120 lb). Relevant Results and Imaging Study Result Narrative & Impression Interpreted By: Thor Royal, STUDY: BI MAMMO BILATERAL DIAGNOSTIC TOMOSYNTHESIS; BI US BREAST LIMITED LEFT; 11/30/2022 11:25 am; 11/30/2022 12:25 pm ACCESSION NUMBER(S): [id number]; [id number] ORDERING CLINICIAN: SHAWN SANTOS INDICATION: Follow-up of a probably benign finding in the left breast. Patient also reports bilateral nonfocal breast pain COMPARISON: 01/29/2022 FINDINGS: 2D and tomosynthesis images were reviewed at 1 mm slice thickness. Density: The breast tissue is extremely dense, which may limit the sensitivity of mammography. No significant change from prior studies. Mammographically the probably benign mass is unchanged as well. No suspicious masses or calcifications are identified. Sonographic images were obtained of the left breast at the 7 o'clock position 4 cm from the nipple. The previously described mass is noted again and remains unchanged. It measures 0.9 x 0.6 x 0.8 cm. It is avascular. It is soft on elastography. IMPRESSION: No change in the probably benign mass in the left breast. This has been stable for nearly a year. An ultrasound evaluation in 1 year at the time of the patient's bilateral mammogram is recommended to document near 2 year stability. Clinical follow-up is recommended for the breast pain. No new mammographic evidence of malignancy bilaterally. BI-RADS CATEGORY: BI-RADS Category: 3 Probably Benign. Recommendation: Short Interval Follow-up. Recommended Date: 1 Year. Laterality: Bilateral Time was spent viewing digital images. I explained the results in depth, along with suggested explanation for follow up recommendations based on the testing results. BI-RADS Category 3 Orders Orders Placed This Encounter Procedures BI US breast limited left Standing Status: Future Standing Expiration Date: 01/31/2024 Order Specific Question: Reason for exam: Answer: 1 yr f/u Order Specific Question: Radiologist to Determine Optimal Study Answer: Yes Order Specific Question: Release result to [employer] Answer: Immediate Order Specific Question: Is this exam part of a Research Study? If Yes, link this order to the research study Answer: No Assessment/Plan 1. Abnormal ultrasound of breast BI US breast limited left 2. Breast pain, left Stable clinical exam and imaging, stable left breast mass, left breast pain, no breast surgery or biopsy, no family history of breast cancer, extremely dense Plan: Return in November 2023 for left breast ultrasound and office visit. Breast pain education given and encouraged to try home remedies. Patient Discussion/Summary I am sorry you are experiencing breast pain. Breast pain is common in women of all ages. Be reassured most breast pain resolves without intervention and breast cancer usually does not cause breast pain. Your breast imaging and exam are stable. Return in November 2023 for left breast ultrasound and office visit. Below is a list of interventions to help reduce or manage the painful symptoms: Reduce or eliminate daily caffeine intake especially in the form of coffee, tea, chocolate, carbonated sodas and energy drinks Reduce dietary fat intake to less than 15% of total calories or approximately 50g per day Evening primrose oil as an over the counter supplement may be helpful. It is an antioxidant. Take 3g orally per day. It may take 3-4 months to notice a difference If you are a smoker, stop smoking. You can call 8-811-ENCOStepsAwayNOW for the [place] tobacco quit line support. If you do not smoke, but are exposed to smokers, avoid secondhand smoke Wear a proper fitting and supportive bra without wire Compresses may be helpful. Apply warm compresses, ice packs or gentle massage Medical Therapy: Over the counter Acetaminophen or a nonsteroidal anti-inflammatory drug such as Ibuprofen can be helpful as needed You can see your health information, review clinical summaries from office visits & test results online when you follow your health with MY Chart, a personal health record. To sign up go to [email or web address]. If you need assistance with signing up or trouble getting into your account call [employer] Patient Line 17/09 at [phone]. My office phone number is [phone] if you need to get in touch with me or have additional questions or concerns. Thank you for choosing [facility] and trusting me as your healthcare provider. I look forward to seeing you again at your next office visit. I am honored to be a provider on your health care team and I remain dedicated to helping you achieve your health goals. CARLTON Ruvalcaba documented in this encounter [facility] Work Phone: 01-26-2022 Note 48 Date of Procedure: 01/26/2022 Pathologist: [facility], Cytology Date Reported: 01/31/2022 Date Received: 01/26/2022 Submitting Physician: ERICKSON PENA MD FINAL CYTOLOGICAL INTERPRETATION A. THINPREP PAP VAGINAL: Specimen Adequacy: SATISFACTORY FOR EVALUATION. General Categorization: NEGATIVE FOR INTRAEPITHELIAL LESION OR MALIGNANCY. HIGH RISK HPV TEST RESULT: HPV GENOTYPE 16 NEGATIVE HPV GENOTYPE 18 NEGATIVE HPV GENOTYPE OTHER NEGATIVE Reference Range: Negative Slide(s) initially screened by a [facility] at [facility], [address] [place] [id number] Testing for high-risk (HR) type of human papilloma virus (HPV) is performed by the Anya dennis HPV Test. The dennis HPV Test is a qualitative polymerase chain reaction that amplifies DNA of HPV16, HPV18 and 12 other high-risk HPV types (31, 33, 35, 39, 45, 51, 52, 56, 58, 59, 66, and 68) associated with cervical cancer and its precursor lesions. A positive result indicates the presence of HPV DNA due to one or more of the 14 genotypes: 16, 18, 31, 33, 35, 39, 45, 51, 52, 56, 58, 59, 66, and 68. Negative results indicate HPV DNA concentrations are undetectable or below the pre-set threshold for detection. False negative results may be associated with unoptimized sampling. A negative HR HPV result does not exclude the possibility of future cytologic HSIL or underlying CIN2-3 or cancer. This test is approved for cervical specimens by the [place] Food and Drug Administration. Results of this test should be interpreted in conjunction with the patient?s Pap test results. Please refer to ASCCP current guidelines for the use of HPV DNA testing, result interpretation, and patient management. The performance of this test was verified by the [facility] Laboratory at [facility]. The lab is certified under the Clinical Laboratory Amendments of 1988 (CLIA 88) as qualified to perform high complexity clinical laboratory testing. This specimen has been analyzed by the Efficiency ExchangePrep Imaging System ([employer] an automated imaging and review system, which assists the laboratory in evaluating cells on ThinPrep Pap tests. Following automated imaging, selected henley from every slide were reviewed by a construction representative and/or pathologist. Electronically Signed Out By [facility], Cytology//LSM By the signature on this report, the individual or group listed as making the Final Interpretation/Diagnosis certifies that they have reviewed this case. Diagnostic interpretation performed at [facility] [address] [place] [address] Educational Note: Cervical cytology is a screening procedure primarily for squamous cancers and precursors and has associated false-negative and false-positive results as evidenced by published data. Your patient?s test should be interpreted in this context, together with patient?s history and clinical findings. Regular sampling and follow-up of unexplained clinical signs and symptoms are recommended to minimize false negative results. Clinical History Date of Last Menstrual Period: Hysterectomy Other Clinical Conditions: COTEST HPV(Genotype) except for ASC-H, HSIL, Carcinoma - Include HPV Genotype testing Annual Clinical Diagnosis History: Pap test, as part of routine gynecological examination - (Z01.419); Vaginal Pap smear - (Z12.72) Source of Specimen A: THINPREP PAP VAGINAL [facility] Department of Pathology [address] [place] [id number] [facility] Syncope, unspecified syncope type [facility] Diagnosis Abnormal ultrasound of breast- Primary Breast pain, left documented in this encounter [facility] Work Phone: Evaluation note* Diagnosis Breast pain Mastodynia documented in this encounter [facility] Work Phone: Evaluation note* Diagnosis Seizure-like activity (CMS/HCC)- Primary Migraine with aura and without status migrainosus, not intractable Anxiety and depression Chronic tension-type headache, not intractable Chronic tension type headache documented in this encounter [facility] Work Phone: Evaluation note* Diagnosis BV (bacterial vaginosis)- Primary Unspecified vaginitis and vulvovaginitis Screen for STD (sexually transmitted disease) Screening examination for venereal disease documented in this encounter [facility] Work Phone: History of Present illness Narrative* Patient presents to [facility]. * Patient's only chronic medical issue is anxiety and depression. Patient reports starting treatment for this with Celexa starting approximately 2009. Patient was treated for 5 years or so and then arbitrarily stopped the medication. Patient states that sudden loss of her sister precipitated resumption of treatment. Patient reports very good results with Celexa. * Patient has no acute concerns at this time. [facility] Work Phone: History of Present illness Narrative* Pt. presents with c/o BV sx. Has hx of BV approx 2x/yr, attributes this to new soap and condoms * Pt. does not want to have exam today * Pt. with hx of hysterectomy, not sure reason and does not recall ever having a pap test. States shehas R ovary * States that she could not tolerate exam with breast surgeon due to pain and that pain has since resolved [address] Work Phone: History of Present illness NarrativePatient presents for 1 year follow-up. Patient currently treated for anxiety/depression, tension headaches, and migraines. Anxiety and depression is well managed with Celexa and, Flexeril, Maxalt with Compazine. Patient has not had a migraine in some time but states that medications are very effective when they do occur. Patient is requesting a refill of the Flexeril. These are also effective fortension headaches. Patient was able to obtain a new job and is doing quite well since that time. Job is physically demanding and causes neck tension and headaches. Flexeril alleviates this.[facility] Work Phone: History of Present illness NarrativePatient presents to review recent mammogram and left breast ultrasound. Patient voiced no complaints and is doing well.[facility] Work Phone: Reason for referral (narrative)* Consultation (Routine) - Authorized Specialty Diagnoses / Procedures Referred By Roberth spencer Referred To Contact Primary Care Procedures Follow Up In Primary Care - Established Yenny Reveles PA-C [address] [facility] [place] [address] Referral ID Status Reason Start Date Expiration Date V isits Requested Visits Authorized [id number] Authorized 01/31/2023 01/31/2024 1 1 [facility] Work Phone: Summary Purpose Family History No Family History Records FoundUnknown Family Member Name Dates Details Bipolar depression: Mother Status:Active Family history of hypertensi on: Mother(V17.49, Z82.49) Status:Active Family history of cardiac di sorder: Grandparent(V17.49, Z82.49) Status:Active Family history of diabetes m ellitus: Grandparent(V18.0, Z83.3) Status:Active Family history of Crohn's di sease: Sister, Grandparent(V18.59, Z83.79) Status:Active Unknown Family Member Name Dates Details Bipolar depression: Mother Status:Active Family history of hypertensi on: Mother(V17.49, Z82.49) Status:Active Family history of cardiac di sorder: Grandparent(V17.49, Z82.49) Status:Active Family history of diabetes m ellitus: Grandparent(V18.0, Z83.3) Status:Active Family history of Crohn's di sease: Sister, Grandparent(V18.59, Z83.79) Status:Active Unknown Family Member Name Dates Details Bipolar depression: Mother Status:Active Family history of hypertensi on: Mother(V17.49, Z82.49) Status:Active Family history of cardiac di sorder: Grandparent(V17.49, Z82.49) Status:Active Family history of diabetes m ellitus: Grandparent(V18.0, Z83.3) Status:Active Family history of Crohn's di sease: Sister, Grandparent(V18.59, Z83.79) Status:Active Unknown Family Member Name Dates Details Bipolar depression: Mother Status:Active Family history of hypertensi on: Mother(V17.49, Z82.49) Status:Active Family history of cardiac di sorder: Grandparent(V17.49, Z82.49) Status:Active Family history of diabetes m ellitus: Grandparent(V18.0, Z83.3) Status:Active Family history of Crohn's di sease: Sister, Grandparent(V18.59, Z83.79) Status:Active Family history of malignant neoplasm of ovary: Mother(V16.41, Z80.41) Status:Active Family history of pancreatic cancer: Grandmother(V16.0, Z80.0) Status:Active Unknown Family Member Name Dates Details Bipolar depression: Mother Status:Active Family history of hypertensi on: Mother(V17.49, Z82.49) Status:Active Family history of cardiac di sorder: Grandparent(V17.49, Z82.49) Status:Active Family history of diabetes m ellitus: Grandparent(V18.0, Z83.3) Status:Active Family history of Crohn's di sease: Sister, Grandparent(V18.59, Z83.79) Status:Active Family history of malignant neoplasm of ovary: Mother(V16.41, Z80.41) Status:Active Family history of pancreatic cancer: Grandmother(V16.0, Z80.0) Status:Active Unknown Family Member Name Dates Details Bipolar depression: Mother Status:Active Family history of hypertensi on: Mother(V17.49, Z82.49) Status:Active Family history of cardiac di sorder: Grandparent(V17.49, Z82.49) Status:Active Family history of diabetes m ellitus: Grandparent(V18.0, Z83.3) Status:Active Family history of Crohn's di sease: Sister, Grandparent(V18.59, Z83.79) Status:Active Family history of pancreatic cancer: Grandmother(V16.0, Z80.0) Status:Active Family history of malignant neoplasm of ovary: Mother(V16.41, Z80.41) Status:Active Unknown Family Member Name Dates Details Bipolar depression: Mother Status:Active Family history of hypertensi on: Mother(V17.49, Z82.49) Status:Active Family history of cardiac di sorder: Grandparent(V17.49, Z82.49) Status:Active Family history of diabetes m ellitus: Grandparent(V18.0, Z83.3) Status:Active Family history of malignant neoplasm of ovary: Mother(V16.41, Z80.41) Status:Active Family history of pancreatic cancer: Grandmother(V16.0, Z80.0) Status:Active Family history of Crohn's di sease: Sister, Grandparent(V18.59, Z83.79) Status:Active Unknown Family Member Name Dates Details Bipolar depression: Mother Status:Active Family history of hypertensi on: Mother(V17.49, Z82.49) Status:Active Family history of cardiac di sorder: Grandparent(V17.49, Z82.49) Status:Active Family history of diabetes m ellitus: Grandparent(V18.0, Z83.3) Status:Active Family history of Crohn's di sease: Sister, Grandparent(V18.59, Z83.79) Status:Active Family history of malignant neoplasm of ovary: Mother(V16.41, Z80.41) Status:Active Family history of pancreatic cancer: Grandmother(V16.0, Z80.0) Status:Active Unknown Family Member Name Dates Details Bipolar depression: Mother Status:Active Family history of hypertensi on: Mother(V17.49, Z82.49) Status:Active Family history of cardiac di sorder: Grandparent(V17.49, Z82.49) Status:Active Family history of diabetes m ellitus: Grandparent(V18.0, Z83.3) Status:Active Family history of Crohn's di sease: Sister, Grandparent(V18.59, Z83.79) Status:Active Family history of pancreatic cancer: Grandmother(V16.0, Z80.0) Status:Active Family history of malignant neoplasm of ovary: Mother(V16.41, Z80.41) Status:Active Unknown Family Member Name Dates Details Bipolar depression: Mother Status:Active Family history of hypertensi on: Mother(V17.49, Z82.49) Status:Active Family history of cardiac di sorder: Grandparent(V17.49, Z82.49) Status:Active Family history of diabetes m ellitus: Grandparent(V18.0, Z83.3) Status:Active Family history of Crohn's di sease: Sister, Grandparent(V18.59, Z83.79) Status:Active Family history of pancreatic cancer: Grandmother(V16.0, Z80.0) Status:Active Family history of malignant neoplasm of ovary: Mother(V16.41, Z80.41) Status:Active Unknown Family Member Name Dates Details Bipolar depression: Mother Status:Active Family history of hypertensi on: Mother(V17.49, Z82.49) Status:Active Family history of cardiac di sorder: Grandparent(V17.49, Z82.49) Status:Active Family history of diabetes m ellitus: Grandparent(V18.0, Z83.3) Status:Active Family history of Crohn's di sease: Sister, Grandparent(V18.59, Z83.79) Status:Active Family history of pancreatic cancer: Grandmother(V16.0, Z80.0) Status:Active Family history of malignant neoplasm of ovary: Mother(V16.41, Z80.41) Status:Active Unknown Family Member Name Dates Details Bipolar depression: Mother Status:Active Family history of hypertensi on: Mother(V17.49, Z82.49) Status:Active Family history of cardiac di sorder: Grandparent(V17.49, Z82.49) Status:Active Family history of diabetes m ellitus: Grandparent(V18.0, Z83.3) Status:Active Family history of Crohn's di sease: Sister, Grandparent(V18.59, Z83.79) Status:Active Family history of pancreatic cancer: Grandmother(V16.0, Z80.0) Status:Active Family history of malignant neoplasm of ovary: Mother(V16.41, Z80.41) Status:Active Unknown Family Member Name Dates Details Bipolar depression: Mother Status:Active Family history of hypertensi on: Mother(V17.49, Z82.49) Status:Active Family history of cardiac di sorder: Grandparent(V17.49, Z82.49) Status:Active Family history of diabetes m ellitus: Grandparent(V18.0, Z83.3) Status:Active Family history of Crohn's di sease: Sister, Grandparent(V18.59, Z83.79) Status:Active Family history of pancreatic cancer: Grandmother(V16.0, Z80.0) Status:Active Family history of malignant neoplasm of ovary: Mother(V16.41, Z80.41) Status:Active Unknown Family Member Name Dates Details Bipolar depression: Mother Status:Active Family history of hypertensi on: Mother(V17.49, Z82.49) Status:Active Family history of cardiac di sorder: Grandparent(V17.49, Z82.49) Status:Active Family history of diabetes m ellitus: Grandparent(V18.0, Z83.3) Status:Active Family history of Crohn's di sease: Sister, Grandparent(V18.59, Z83.79) Status:Active Family history of pancreatic cancer: Grandmother(V16.0, Z80.0) Status:Active Family history of malignant neoplasm of ovary: Mother(V16.41, Z80.41) Status:Active Unknown Family Member Name Dates Details Bipolar depression: Mother Status:Active Family history of hypertensi on: Mother(V17.49, Z82.49) Status:Active Family history of cardiac di sorder: Grandparent(V17.49, Z82.49) Status:Active Family history of diabetes m ellitus: Grandparent(V18.0, Z83.3) Status:Active Family history of Crohn's di sease: Sister, Grandparent(V18.59, Z83.79) Status:Active Family history of pancreatic cancer: Grandmother(V16.0, Z80.0) Status:Active Family history of malignant neoplasm of ovary: Mother(V16.41, Z80.41) Status:Active Advance Directives No Advanced Directives Records FoundDocuments on File Type Date Recorded 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 Patient states it started 2 days ago.* Patient here today to get established as a new patient. * Patient states the last time she was seen by a PCP was 4 years ago. * Patient offers no complaints at this time and is currently taking Celexa for anxiety and depression. * Patient will be needing refill for the Celexa. 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 PT HERE TODAY WITH A POSSIBLE BACTERIA INFECTION. PT STATES SHE NOTICED AN ODOR, AND SLIGHT ITCHINGABOUT THREE DAYS AGO. PT DENIES ANY BURNING, OR ABNORMAL DISCHARGE. PT THINKS THE CAUSE MAY BE THE SOAP AND CONDOMS THAT SHE HAS BEEN USING. LMP HYSTER* Patient here today for follow up 1 year. * Patient states doing well with anxiety and depression, states is now working and keeping busy. * Diazepam helps with tension headaches/ migraines and questions if can continue as needed. Patient is here for her yearly exam and pap test. LMP: Hysterectomy. Patient does not do regular self breast exams and c/o vaginal itching, burning when voiding and pain & possible lump to left breast. Patient denies any changes to the skin or nipple discharge. Patient does drink one Red Bull aday.Patient is here to review breast ultrasound results. Reason for Referral Specialty Diagnoses / Procedures Referred By Roberth spencer Referred To Contact Radiology Diagnoses Abnormal ultrasound of breast Procedures BI US breast limited left Shawn Santos APRN-CNP [id number] [facility] [address] Referral ID Status Reason Start Date Expiration Date Visits Requested Visits Authorized [id number] Pending Review Perform Procedure 11/30/2022 05/29/2023 1 1 Specialty Diagnoses / Procedures Referred By Roberth spencer Referred To Contact Radiology Diagnoses Breast pain Procedures BI mammo bilateral diagnostic tomosynthesis Shawn Santos APRN-CNP [id number] [facility] of Surgery-Surgical Oncology [place] [id number] Referral ID Status Reason Start Date Expiration Date Visits Requested Visits Authorized [id number] Authorized Perform Procedure 11/12/2022 05/11/2023 1 1 Additional Source Comments INFORMATION SOURCE (unrecogn ized section and content) DATE CREATED AUTHOR AUTHOR'S ORGANIZ ATION 02/03/2018 [facility] DATE CREATED AUTHOR AUTHOR'S ORGANIZ ATION 04/15/2018 [facility] DATE CREATED AUTHOR AUTHOR'S ORGANIZ ATION 08/01/2019 [facility] DATE CREATED AUTHOR AUTHOR'S ORGANIZ ATION 05/17/2021 [facility] DATE CREATED AUTHOR AUTHOR'S ORGANIZ ATION 06/09/2021 [facility] DATE CREATED AUTHOR AUTHOR'S ORGANIZ ATION 08/24/2021 [facility] DATE CREATED AUTHOR AUTHOR'S ORGANIZ ATION 02/01/2022 [facility] DATE CREATED AUTHOR AUTHOR'S ORGANIZ ATION 11/08/2022 [facility] DATE CREATED AUTHOR AUTHOR'S ORGANIZ ATION 11/08/2022 [employer] DATE CREATED AUTHOR AUTHOR'S ORGANIZ ATION 12/07/2022 [facility] DATE CREATED AUTHOR AUTHOR'S ORGANIZ ATION 12/25/2022 [facility] DATE CREATED AUTHOR AUTHOR'S ORGANIZ ATION 03/14/2023 [facility] Licensing Specialist Teams (unrecognized sec tion and content) 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 Relationship Specialty Start Date End Date Yenny Reveles PA-C [address] [place] [address] PCP - General Physician Membership Solicitor 04/25/21 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 Relationship Specialty Start Date End Date Yenny Reveles PA-C [address] [place] [address] PCP - General Physician Membership Solicitor 04/25/21 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 Relationship Specialty Start Date End Date Yenny Reveles PA-C [address] [place] [address] PCP - General Physician Membership Solicitor 04/25/21 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 Relationship Specialty Start Date End Date Yenny Reveles PA-C [address] [facility] Physician [facility] [place] [address] PCP - General 01/02/21 Yenny Reveles PA-C [address] [facility] [place] [address] PCP - [employer] PCP 07/26/21 Yenny Reveles PA-C [address] [facility] [place] [address] PCP - [facility] Medicaid PCP 05/26/22 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 Relationship Specialty Start Date End Date Yenny Reveles PA-C [address] [facility] [place] [address] PCP - General 01/02/21 Yenny Reveles PA-C [address] [facility] [place] [address] PCP - [employer] PCP 07/26/21 Yenny Reveles PA-C [address] [facility] [place] [address] PCP - [facility] Medicaid PCP 05/26/22 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 Relationship Specialty Start Date End Date Yenny Reveles PA-C [address] [facility] [place] [address] PCP - General 01/02/21 Yenny Reveles PA-C [address] [facility] [place] [address] PCP - Jeremie ROSENO PCP 07/26/21 Yenny Reveles PA-C [address] [facility] [place] [address] PCP - [facility] Medicaid PCP 05/26/22 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 Relationship Specialty Start Date End Date Yenny Reveles PA-C [address] [facility] [place] [address] PCP - General 01/02/21 Yenny Reveles PA-C [address] [facility] [place] [address] PCP - [facility] Medicaid PCP 05/26/22 Reason for Visit (unrecogniz ed section and content) Referral ID Status Reason Start Date Expiration Date Visits Re quested Visits Authorized [id number] Closed 05/01/2021 05/01/2022 1 1 Reason Comments Medication Refill Reason Comments [place] Specialty Diagnoses / Procedures Referred By Contac t Referred To Contact Radiology Diagnoses Breast pain Procedures BI mammo bilateral diagnostic tomosynthesis Shawn Santos, FEDE-WRECKING MECHANIC [address] [facility] of Surgery[facility] [address] Referral ID Status Reason Start Date Expiration Date Visits Requested Visits Authorized [id number] Authorized Perform Procedure 11/12/2022 05/11/2023 1 1 Reason Comments Annual Exam FU 1 year, patient s tates has notice lymph nodes swollen in the neck area x 2 weeks.Patient states has been having increased migraines and medications are working to alleviate symptoms. Reason Comments Vaginitis/Bacterial Vaginosis Patient is here with c/o vaginal discharge, itching, burning and tenderness. Patient would like STD screening as well. FOR RECORDS PERTAINING TO PATIENTS WHO ARE OR HAVE BEEN ENROLLED IN A CHEMICAL DEPENDENCY/SUBSTANCEABUSE PROGRAM, SOME INFORMATION MAY BE OMITTED. This clinical summary was aggregated from multiple sources. Caution should be exercised in using it in the provision of clinical care. This summary normalizes information from multiple sources, and as a consequence, information in this document may materially change the coding, format and clinical context of patient data. In addition, data may be omitted in some cases. CLINICAL DECISIONS SHOULD BE BASED ON THE PRIMARY CLINICAL RECORDS. [facility] [employer] [facility]. provides no warranty or guarantee of the accuracy or completeness of information in this document.
[2023-05-02] MEDS: Ibuprofen 600 MG Tablet PO (06:40)
[2023-05-02 06:47] VITALS: BP 140/77; PULSE 82; RESP 16; TEMP 36.3; O2SAT 99
== END 2023-05-02 06:49 | disposition home or self-care (01) ==
PROVIDERS: Emergency Provider Emergency Medicine; PCP Physician Assistant; Visit Provider Emergency Medicine
DX: S92.532A Displaced fracture of distal phalanx of left lesser toe(s), initial encounter for closed fracture (principal); Z87.891 Personal history of nicotine dependence; W22.8XXA Striking against or struck by other objects, initial encounter; Y92.018 Other place in single-family (private) house as the place of occurrence of the external cause
CPT/HCPCS: 73630; 99282